=== PATIENT | female | born 1955 | race Caucasian/White ===

== ENCOUNTER 2019-02-28 07:54 | Day surgery (SDC) | payer BC ==
[~2019-02-28 07:54] MED LIST: ACETAMINOPHEN 1,000 MG/100 ML BTL IV ONE; CEFAZOLIN 2 Gram 2 GM/50 ML BAG IVPB ONE; FAMOTIDINE 20MG TABLET PO ONE; METOCLOPRAMIDE 10 MG TABLET PO ONE; SCOPOLAMINE 1 PATCH TDSY TD ONE; VANCOMYCIN HCL 1,000 MG in 0.9 % SODIUM CHLORIDE 250ML 250 ML IVPB ONE
[2019-02-28] MEDS ORDERED: MIDAZOLAM HCL 2MG/2ML VIAL IV ONE (07:55)
[2019-02-28] MEDS ORDERED: BUPIVACAINE LIPOSOME 266MG/20ML VIAL IV ONE (07:55)
[2019-02-28] MEDS ORDERED: KETOROLAC 30 MG/ML VIAL IVP ONE ×2 (07:55→11:55)
[2019-02-28] MEDS ORDERED: DEXAMETHASONE 4 MG/ML 1ML VIAL IVP ONE (07:55)
[2019-02-28] MEDS ORDERED: BUPIVACAINE 0.5% W/EPI MPF 30 ML VIAL IVP ONE (07:55)
[2019-02-28] MEDS ORDERED: LIDOCAINE 2% MDV (20MG/ML) 20ML VIAL IV ONE (07:55)
[2019-02-28] MEDS ORDERED: TRANEXAMIC ACID 1,000 MG/10 ML ML IV ONE ×2 (07:55)
[2019-02-28] MEDS ORDERED: PROPOFOL 10 MG/ML VIAL IV ONE (07:55)
[2019-02-28] MEDS ORDERED: ROPIVACAINE HCL (NAROPIN) /PF 5MG/ML 20ML VIAL IV ONE (07:55)
[2019-02-28] MEDS ORDERED: VANCOMYCIN HCL 1 GM VIAL IVPB ONE ×2 (07:55)
[2019-02-28] MEDS ORDERED: KETAMINE HCL 100MG/1ML VIAL INJ ONE (07:55)
[2019-02-28] MEDS ORDERED: METOCLOPRAMIDE 10 MG TABLET PO PRN (08:01)
[2019-02-28] MEDS ORDERED: ACETAMINOPHEN W/ CODEINE 300MG/30MG TABLET PO PRN ×2 (08:01)
[2019-02-28] MEDS ORDERED: KETOROLAC 30 MG/ML VIAL IVP PRN ×2 (08:01)
[2019-02-28] MEDS ORDERED: AL HYDROX/MAG HYDROX 30ML UD PO PRN (08:01)
[2019-02-28] MEDS ORDERED: ONDANSETRON 4 MG ODT TABLET SL PRN (08:01)
[2019-02-28] MEDS ORDERED: MAGNESIUM HYDROXIDE 30 ML UDC PO PRN (08:01)
[2019-02-28] MEDS ORDERED: BISACODYL 10 MG SUPP RC PRN (08:01)
[2019-02-28] MEDS ORDERED: TRAMADOL HCL 50 MG TABLET PO PRN ×2 (08:01)
[2019-02-28] MEDS ORDERED: ACETAMINOPHEN 325 MG TAB PO PRN (08:01)
[2019-02-28] MEDS ORDERED: PROMETHAZINE HCL 25 MG TABLET PO PRN (08:01)
[2019-02-28] MEDS ORDERED: DIPHENHYDRAMINE HCL 25 MG CAPSULE PO PRN (08:01)
[2019-02-28] MEDS ORDERED: HYDROCODONE/APAP 5/325MG TABLET PO PRN ×2 (08:01)
[2019-02-28] MEDS ORDERED: NALOXONE 0.4 MG/1 ML VIAL IVP PRN (08:01)
[2019-02-28] MEDS ORDERED: HYDROCODONE/APAP 7.5/325MG TABLET PO PRN ×2 (08:01)
[2019-02-28] MEDS ORDERED: ACETAMINOPHEN W/ CODEINE 300MG/60MG TABLET PO PRN ×2 (08:01)
[2019-02-28 08:50] LABS: ABO GROUP O; ANTIBODY SCREEN NEGATIVE (NEGATIVE); RH TYPE POSITIVE
[2019-02-28] MEDS ORDERED: DOCUSATE SODIUM 100 MG CAPSULE PO SCH (10:00)
[2019-02-28] MEDS ORDERED: BUPIVACAINE 0.5% W/EPI MPF 30 ML VIAL SQ ONE (10:36)
[2019-02-28] MEDS ORDERED: BUPIVACAINE LIPOSOME 266MG/20ML VIAL SQ ONE (10:37)
[2019-02-28] MEDS ORDERED: RINGERS SOLUTION,LACTATED 700 ML IV ONE (11:37)
[2019-02-28] MEDS ORDERED: DEXTROSE 5 % AND 0.9 % NACL 1,000 ML IV PRN (12:30)
[2019-02-28] MEDS ORDERED: VANCOMYCIN HCL 500 MG in 0.9 % SODIUM CHLORIDE 100ML 100 ML IVPB SCH (13:00)
--- NOTE | 2019-02-28 14:02 | Operative Note ---
DATE OF SURGERY: 02/28/19 PREOPERATIVE DIAGNOSIS: END-STAGE LEFT KNEE ARTHROSIS. POSTOPERATIVE DIAGNOSIS: END-STAGE LEFT KNEE ARTHROSIS. OPERATION: LEFT TOTAL KNEE ARTHROPLASTY. SURGEON: JOSE NAGEL MD ANESTHESIA: GENERAL ENDOTRACHEAL. [place]. COMPLICATIONS: NONE. BLOOD LOSS: MINIMAL. TOURNIQUET TIME: APPROXIMATELY 60 MINUTES. OPERATIVE FINDINGS: [employer] Oxinium total knee arthroplasty system, size 5 femoral component, size 3 tibial baseplate, 11 mm thick tibial poly insert, 29 mm cemented patellar component. INDICATION FOR OPERATION: This is a 63-year-old female with end-stage left knee arthrosis, failed nonoperative treatment and scheduled for total knee arthroplasty. I explained the risks, benefits in detail for diagnosis and procedures including but not limited to infection, nerve injury, vessel injury , persistent pain, numbness, tingling in her knee, periprosthetic fracture, need for resection, arthroplasty should components become infected or loosen, nerve injury, vessel injury, or blood clot, need for further procedures and all of her questions were answered, rehab and healing course were outlined and she agreed to proceed. PROCEDURE: The patient was brought to the OR and placed in the supine position for arthroscopic surgery. General endotracheal anesthesia induced and her left lower extremity and knee prepped and draped in sterile fashion. The left knee was prepped again with ChloraPrep, and draped. Intraoperative time -out was performed. The knee was injected with 0.5% Marcaine with Epinephrine and Exparel and the leg was exsanguinated with an Esmarch. The knee was flexed and tourniquet inflated to 250 mmHg pressure. Next, the skin and subcutaneous tissue were dissected down. Incised the capsule mediolateral around the medial border of patella. Incised the vastus medialis in line with its fibers in a mid vastus approach after incising the capsule around the medial border of the patella. Everted the patella, partially resected the retropatellar fat pad. The patella had grade 3-4 chondromalacia. We then flexed the knee, released the capsule subperiosteally medially some of the fat pad. Next, she had grade 4 chondromalacia in the medial femoral condyle and patella. We then drilled intercondylar drill hole, inserted an intramedullary guide andrew with a 6 degree cutting block, and aligned the distal femoral condyles, pinned them in the +2 mm positioned and cut the distal femoral condyles. Next, we placed a sizing jig on the distal femoral condyle and sized to be a size 5. Through the previously placed pinholes, placed a size 5 cutting jig. We dialed the anterior cuts so it would come out flush without notching checking the resection blade. We then tightened the knot and cut the anterior cut and it was a good flush cut and good footprint. Next, we pinned the cutting jig and cut the remainder of the cuts in the usual fashion. Next, placed a size 5 femoral component, centered it and pinned it and removed osteophytes. Inserted the resection collet and reamed down and box osteotome out the cruciate bone block. Attention was turned to the tibia. Exposed the tibia and resected the meniscus and placed an extramedullary guide with the spikes in the trabecular groove two fingerbreadths distally off the anterior tibial cortex and referenced for a 7 mm cut off the higher lateral plateau. We pinned the cutting jig and provisionally placed two anterior and posterior pins. Next, rechecked alignment cuts with a drop andrew and once we had good anatomic alignment, we then cross-pinned the cutting jig to complete fixation then cut the tibia. Next, we removed osteophytes off the posterior femoral condyles. Checked the flexion and extension gaps and sized it up to a size 11 mm thick poly insert and this allowed for 2-3 mm of varus valgus laxity in flexion and extension. Overall, alignments and extensions of the anatomic valgus orientation with alignment andrew centered on the hip joint and ankle joint. We took the knee into flexion. Sized the tibial baseplate to a size 3 and replaced all trial components. Set the rotation of the tibial baseplate again extension using the alignment andrew centered on the hip joint and ankle joint. Marked with electrocautery sosa on the tibial cortex off the laser sosa on the tibial baseplate. Next, attention was turned to the patella. We measured the patella to be 18 mm, set the cutting jig at 12 mm to allow for a 9 mm thick poly insert and cut the patella and remeasured right on 12. We chamfered off the lateral patella facet and sized it to be 29, medialized as much as possible, drilled the three peg holes and placed the trial patellar component, mixed cement, and did a trial range of motion. The patella tracked nicely handsfree with full extension and flexion to 130-140 degrees. Took the knee in flexion, seated the tibial baseplate with the previously placed electrocautery sosa, pinned it in place, and drilled down and keel punched the keel hole. Next, we placed a bone plug in the femoral canal hole, placed the drill in the tibial keel hole. We then changed gloves, we copiously irrigated with pulsatile antibiotic solution. Pre-coated bony surfaces. Impacted down the tibial component first and then the femoral component removing excess cement. Placed the trial poly liner, held the knee in extension until the cement hardened, and clamped down the patella component. Next, took the knee in flexion, removed excess cement around the edges of the components, irrigated copiously. Distracted the knee with a bone hook and sponge removing excess cement again and now we injected the knee capsule mediolaterally, periosteum working out deep superficial with 0.5% Marcaine with Epinephrine, 2 gm Tranexamic Acid and Exparel mixture deep to superficial. Next, we inserted the real tibial poly insert verifying it was interlocked medially and laterally. Final range of motion revealed the same. We irrigated, closed the knee in flexion with a running #2 quill STRATAFIX suture. The capsule and vastus split. Irrigated again. Closed the skin deep with 2-0 Vicryl securely and sterile dressing was applied to be changed to a SIMI dressing prior to discharge tomorrow, which is outpatient. cc: Dr. Shanika Lemus JOB NUMBER: [id number] MTDD
--- NOTE | 2019-02-28 14:43 | Rehab Evaluation ---
Patient Information - Patient Information Diagnosis: L knee OA Ordered Treatment: PT Evaluate and Treat Status: Initial Evaluation Surgery: Yes (L TKA) Date of Surgery: 02/28/19 Past Medical/Surgical Hx: PAST MEDICAL/SURGICAL HISTORY Past Surgical History D AND C JAW SX RIGHT KNEE TUBAL LIGATION 1984 LEFT KNEE SCOPE C SCOPES PMH - Respiratory Hx Respiratory Disorders Yes Hx Bronchitis Yes: YRS AGO PMH - Cardiovascular Hx Cardiovascular Disorders Yes Hx Heart Murmur Yes Exercise Tolerance Good PMH - Neuro Hx Neurological Disorders No PMH - GI Hx Gastrointestinal Disorders Yes Hx Gastroesophageal Reflux Yes: ROLAIDS PMH - Hx Genitourinary Disorders No Hx Age of Menopause 46 PMH - Endocrine Hx Endocrine Disorders No PMH - Musculoskeletal Hx Musculoskeletal Disorders Yes Hx Arthritis Yes: KNEES AND ALL OVER PMH - Psych Hx Psychiatric Problems Yes Hx Depression Yes PMH - Hematology/Oncology Hx Hematology/Oncology No Disorders Premorbid Status: Detail (Prior to surgery, the patient was independent with all mobility.) Social History: Detail (The patient lives with spouse in a one story house with 3 steps without a handrail. The bathroom is equipped with a walk in shower and a standard height toilet with a riser seat. No grab bars are present in the bathroom. The patient a front wheeled walker and a single point cane.) Precautions: [place], Fall, Other (WBAT on the L LE.) - Time With Patient Total Time Spent With Patient (Min): 20 Treatment Procedures: Detail (Initial evaluation, gait training on levels and stairs and instruction in HEP.) Subjective Information - Subjective Information Per Patient (The patient had complaints of L knee pain, level 2 at the highest using 0-10 pain scale.) Objective Data - Mental Status Patient Orientation: Oriented x3 - Visual Perception Appears within normal limits for therapeutic activities - ROM Not within normal limits (The patient's L knee AROM was limited as to be expected following surgery aprox 80 degrees to 0 degrees. All other AROM was WNL.) - Strength/Tone Not within normal limits (The patient's L LE strength was not tested s/p surgery , however was functional ie: patient could complete a SLR. R LE strength was functional.) - Bed Mobility Independent (The patient was independent with supine to and from sit transfer.) - Transfers Independent (The patient was independent with sit to and from stand transfer.) - Balance Balance Sitting: Good Balance Standing: Good - Sensation Intact - Gait Detail (The patient ambulated with front wheeled walker 50 feet x 1 WBAT on the L LE independently. Patient declined to ambulate further. The patient ambulated on 3 stairs with folded walker and family member on other side supporting her, using proper technique.) Therapy Assessment - Therapy Assessment Detail (The patient was independent with transfers, bed mobility and ambulation on levels and stairs. The patient was also independent with HEP. The patient has met all inpatient PT goals and was discharged from inpatient PT. Due to stable condition and few personal factors, PT complexity is rated as low.) Patient Education - Patient Education Teaching Topic: Exercise/Activity (The patient completed the following TKA HEP: ankle pumps, heel slides seated, SLR, quad sets, hamstring sets and gluteal sets. The patient had some difficulty isolating hamstrings but did per her report have a previous hamstring injury.) Response: Return Demonstration Teaching Method: Demonstration, Handout Teaching Recipient: Patient Barriers To Learning: None Problem List - Problem List Physical Therapy Problem List: Detail (1) Decreased L knee AROM as to be expected following surgery. 2) Decreased L LE strength.) Goals - Goals Physical Therapy Goals: The patient has met all inpatient PT goals and is to continue with Home PT. Prognosis - Prognosis Good Plan - Plan Physical Therapy Plan: The patient has met all inpatient goals and is to continue with Home PT.
--- NOTE | 2019-02-28 14:48 | Rehab Evaluation ---
Patient Information - Patient Information Diagnosis: L knee OA Ordered Treatment: OT Evaluate and Treat Status: Initial Evaluation Surgery: Yes (L TKA) Date of Surgery: 02/28/19 Past Medical/Surgical Hx: PAST MEDICAL/SURGICAL HISTORY Past Surgical History D AND C JAW SX RIGHT KNEE TUBAL LIGATION 1984 LEFT KNEE SCOPE C SCOPES PMH - Respiratory Hx Respiratory Disorders Yes Hx Bronchitis Yes: YRS AGO PMH - Cardiovascular Hx Cardiovascular Disorders Yes Hx Heart Murmur Yes Exercise Tolerance Good PMH - Neuro Hx Neurological Disorders No PMH - GI Hx Gastrointestinal Disorders Yes Hx Gastroesophageal Reflux Yes: ROLAIDS PMH - Hx Genitourinary Disorders No Hx Age of Menopause 46 PMH - Endocrine Hx Endocrine Disorders No PMH - Musculoskeletal Hx Musculoskeletal Disorders Yes Hx Arthritis Yes: KNEES AND ALL OVER PMH - Psych Hx Psychiatric Problems Yes Hx Depression Yes PMH - Hematology/Oncology Hx Hematology/Oncology No Disorders Premorbid Status: Detail (Prior to surgery, the patient was independent with all mobility, meal prep, laundry and home mgmt. Spouse and sister will be assisting after surgery.) Social History: Detail (The patient lives with spouse in a one story house with 3 steps without a handrail at the entrance. The bathroom is equipped with a walk in shower and a standard height toilet with a riser seat. No grab bars are present in the bathroom. The patient has a front wheeled walker and a single point cane.) Precautions: [place], Fall, Other (WBAT left LE) - Time With Patient Total Time Spent With Patient (Min): 35 Treatment Procedures: Detail (OT eval low complexity) Subjective Information - Subjective Information Per Patient Objective Data - Pain Pain Present: Yes (2-01/23) - Mental Status Patient Orientation: Oriented x3 - Visual Perception Appears within normal limits for therapeutic activities - ROM Within normal limits (Jeremy UE AROM WNL) - Strength/Tone Within normal limits (Jeremy UE strength WNL) - Coordination Appears within normal limits for therapeutic activities - Bed Mobility Independent (Ind with supine to sit) - Transfers Independent (Ind with sit to stand from toilet, EOB and chair heights.) - Balance Balance Sitting: Good Balance Standing: Good - Sensation Intact - Gait Detail (Pt ambulating in room with 2 wheeled walker and supervision.) - ADL's/IADL's Detail (Pt educated and able to demonstrate learning of modified LE dressing techniques including doffing briefs and slipper socks and donning underwear, pants and slip on shoes. Reviewed shower and kitchen safety and modifications. Pt verbalizes understanding.) Therapy Assessment - Therapy Assessment Detail (Pt is Ind with modified LE dressing techniques.) Problem List - Problem List Occupational Therapy Problem List: Detail (No current IP OT problems identified. ) Goals - Goals Occupational Therapy Goals: No current IP OT goals identified. Prognosis - Prognosis Good Plan - Plan Occupational Therapy Plan: No further IP OT recommended. Thank you for this referral.
== END 2019-02-28 16:15 | disposition home health service (06) ==
LOC: SUR 07:54 → MEDSURG 12:52 → SUR 16:15
PROVIDERS: ATTEND Orthopaedic Surgery
DX: M17.12 Unilateral primary osteoarthritis, left knee (principal)
CPT/HCPCS: 27447; 01402; 64447; 86900; 86901; 86850; J1885; J3370; J0690; C9290; J3490 ×2; J2795; 76942; J7050; J7120